=== PATIENT | female | born 1960 | race Hispanic/Latino ===

== ENCOUNTER 2021-04-23 08:27 | Day surgery (SDC) | payer BC ==
[2021-04-21 16:28] LABS: BASOPHILS % (AUTO) 0.7 % (0.0-5.0); EOSINOPHILS % (AUTO) 1.8 % (0.0-8.0); LYMPHOCYTES % (AUTO) 38.7 % (21.0-51.0); MEAN CORPUSCULAR HEMOGLOBIN 30.1 pg (27.0-33.0); MEAN CORPUSCULAR VOLUME 91.1 fL (79-99); MONOCYTES % (AUTO) 5.5 % (3.0-13.0); NEUTROPHILS % (AUTO) 53.1 % (40.0-77.0); PLATELET COUNT (AUTO) 316 K/uL (130-400); RED BLOOD CELL COUNT(AUTO) 4.72 MIL/uL (4.00-5.50); RED CELL DISTRIBUTION WIDTH 13.6 % (11.0-15.5)
[2021-04-21 16:35] LABS: APPEARANCE,URINE Clear (CLEAR); BILIRUBIN,URINE Negative (NEGATIVE); COLOR,URINE Yellow (YELLOW); GLUCOSE, URINE (UA) Negative (NEGATIVE); KETONES,URINE Negative (NEGATIVE); LEUKOCYTE ESTERASE ,URINE Negative (NEGATIVE); NITRATE,URINE Negative (NEGATIVE); OCCULT BLOOD,URINE Negative (NEGATIVE); PH,URINE 7.5 (5.0-8.0); PROTEIN,URINE Negative (NEGATIVE); UROBILINOGEN,URINE 0.2 mg/dL (0.2-1.0)
[2021-04-21 16:39] LABS: CREATININE 0.7 mg/dL (0.5-1.5)
[2021-04-21 16:40] LABS: INR 1.11 (0.85-1.15)
[2021-04-21 16:41] LABS: PARTIAL THROMBOPLASTIN TIME 26.5 SEC (26.3-35.5)
[2021-04-23] VITALS (11 sets, daily range): BP systolic 99–142; BP diastolic 55–74
[~2021-04-23] VITALS: Ht 157.5 cm; Wt 68.9 kg
[~2021-04-23 08:27] MED LIST: BENA5TAB6 PO; DELNIDO FORMULA 0 BAG IV ONE; HYDR25TA PO; LEVO88CA4 PO; METO-409 PO; NITR0.4T50 SL
[2021-04-23] MEDS ORDERED: 0.9%NACL 1000ML 1,000 ML IV ONE (09:39)
[2021-04-23] MEDS ORDERED: IOHEXOL-350 50ML VIAL IV ONE (09:40)
[2021-04-23] MEDS ORDERED: NITROGLYCERIN 2 MG VIAL IV ONE (09:40)
[2021-04-23] MEDS ORDERED: LIDOCAINE HCL 400MG/20ML VIAL ONE (09:40)
[2021-04-23] MEDS ORDERED: IOHEXOL 350 MG/ML 100ML INFUS..BTL IV ONE (09:40)
[2021-04-23] MEDS ORDERED: FENTANYL CITRATE PF 50 MCG/1 ML 2ML VIAL ONE (09:57)
[2021-04-23] MEDS ORDERED: MIDAZOLAM HCL 1 MG/ML 2ML VIAL ONE (09:57)
[2021-04-23] MEDS ORDERED: HYDRALAZINE 20MG/ML VIAL ONE (10:32)
[2021-04-23] MEDS ORDERED: DEXTROSE 50%-WATER 50 ML DISP.SYRIN IV PRN (11:00)
[2021-04-23] MEDS ORDERED: 0.9%NACL 1000ML 1,000 ML IV SCH (11:00)
[2021-04-23] MEDS ORDERED: NITROGLYCERIN 0.4 MG SL TAB SL ONE (11:34)
[2021-04-23] MEDS ORDERED: NITROGLYCERIN 0.4 MG SL TAB SL SCH (12:00)
== END 2021-04-23 17:15 | disposition home or self-care (01) ==
LOC: DAH 08:27
PROVIDERS: ATTEND Student in an Organized Health Care Education/Training Program
DX: I25.118 Atherosclerotic heart disease of native coronary artery with other forms of angina pectoris (principal); R94.31 Abnormal electrocardiogram [ECG] [EKG]; E86.0 Dehydration; Z82.49 Family history of ischemic heart disease and other diseases of the circulatory system; Z79.01 Long term (current) use of anticoagulants; Z79.899 Other long term (current) drug therapy
CPT/HCPCS: 36415; 71045; 80048; 81003; 85025; 85610; 85730; 93005; 93454; 96360; 96361; A4215; A4216; A4221; A4222; A4223 ×3; A4606; A4663; C1760; C1894 ×2; J0360; J1644; J2250; J3010; J3490 ×2; J7030; Q9965; Q9967 ×2; 99156; 99157

== ENCOUNTER → 2021-12-02 | Outpatient (CLI) | payer BC ==
[~2021-12-02] MED LIST changes: +AEC81 PO; +ATOR40TA71 PO; -BENA5TAB6 PO; -DELNIDO FORMULA 0 BAG IV ONE; +LISI20TA24 PO; -METO-409 PO
[2021-12-02 12:54] LABS: CHOLESTEROL 135 mg/dL (<200); CREATINE KINASE, TOTAL 72 U/L (21-232); HDL CHOLESTEROL 57 mg/dL (35-85); LDL DIRECT 68 mg/dL (0-99); TRIGLYCERIDES 60 mg/dL (30-200)
== END | disposition home or self-care (01) ==
LOC: LAB 11:08
PROVIDERS: ATTEND Student in an Organized Health Care Education/Training Program
DX: I10 Essential (primary) hypertension (principal); E78.5 Hyperlipidemia, unspecified; Z95.5 Presence of coronary angioplasty implant and graft
CPT/HCPCS: 36415; 80061; 82550

== ENCOUNTER 2023-11-21 10:23 | Emergency (ER) | payer BC ==
[~2023-11-21] VITALS: Ht 157.5 cm; Wt 70.3 kg
[2023-11-21 10:27] VITALS: BP 127/70
[2023-11-21 11:38] LABS: COVID19 (SARS ANTIGEN RAPID) PRESUMPTIVE NEGATIVE (NEGATIVE)
[2023-11-21 11:50] LABS: INFLUENZA TYPE A NEGATIVE FOR TYPE A (NEG); INFLUENZA TYPE B NEGATIVE FOR TYPE B (NEG)
[2023-11-21 12:37] LABS: POTASSIUM 4.3 mmol/L (3.5-5.1)
[2023-11-21 13:02] LABS: HEMATOCRIT 39.2 % (36-48); MEAN CORPUSCULAR HEMOGLOBIN 29.8 pg (27.0-33.0); MEAN CORPUSCULAR HGB CONC 34.2 g/dL (32.0-36.0); MEAN CORPUSCULAR VOLUME 87.1 fL (79-99); PLATELET COUNT (AUTO) 234 K/uL (130-400); RED CELL DISTRIBUTION WIDTH 14.3 % (11.0-15.5); WHITE BLOOD COUNT (AUTO) 9.6 K/uL (4.8-10.8)
[2023-11-21 13:05] LABS: BAND NEUTROPHILS % (MANUAL) 8 % (0-2); LYMPHOCYTES % (MANUAL) 5 % (22-44); MAN.DIFF COMMENT-IMPRESSION MANUAL DIFFERENTIAL; MONOCYTES % (MANUAL) 5 % (2-9); PLATELET MORPHOLOGY COMMENT ADEQUATE; SEGMENTED NEUTROPHILS % 82 % (40-70); TOTAL CELLS COUNTED 100
[2023-11-21] MEDS ORDERED: AZIT250T9 PO (14:27)
[2023-11-21 14:44] VITALS: PULSE 92; RESP 20; O2SAT 99
== END 2023-11-21 14:45 | disposition home or self-care (01) ==
LOC: EDH 10:23
DX: J06.9 Acute upper respiratory infection, unspecified (principal); R50.9 Fever, unspecified; I10 Essential (primary) hypertension; Z79.899 Other long term (current) drug therapy; Z20.822 Contact with and (suspected) exposure to COVID-19
CPT/HCPCS: 36415; 80048; 84484; 85025; 87426; 87804; 93005